=== PATIENT | female | born 1965 | race Caucasian/White ===

== ENCOUNTER → 2018-12-03 | Outpatient (CLI) | payer BC ==
[~2018-12-03] MED LIST: HYDROCODONE PO; PROZAC40 MG PO
--- NOTE | 2018-12-03 17:44 | Diagnostic Imaging Report ---
RIBS UNILAT W/CXR - 5 views HISTORY: Pain COMPARISON: None available. FINDINGS: See impression. IMPRESSION: Mildly displaced fracture of the posterolateral right ninth rib. Nondisplaced posterolateral fractures of the right eighth and seventh ribs. Mild left basilar subsegmental atelectasis. No visible pneumothorax. Signed by: Dr. He Arango MD on 12/03/2018 5:40 PM
== END ==
LOC: RAD 15:59
PROVIDERS: ATTEND Family Medicine
DX: R07.81 Pleurodynia (principal); S22.41XA Multiple fractures of ribs, right side, initial encounter for closed fracture
CPT/HCPCS: 71101